=== PATIENT | male | born 1985 | race Two or more races ===

== ENCOUNTER 2021-12-20 08:55 | Inpatient (IN) | payer BC, MEDICAID ==
[2021-12-14 11:06] LABS: BASOPHILS % (AUTO) 0.8 % (0-1); EOSINOPHILS # (AUTO) 0.2 X10'3 (0-0.9); LYMPHOCYTES # (AUTO) 1.2 X10'3 (1.1-4.8); LYMPHOCYTES % (AUTO) 26.5 % (21-51); MEAN CORPUSCULAR HEMOGLOBIN 27.5 PG (27.0-31.0); MEAN CORPUSCULAR HGB CONC 33.6 g/dL (33.0-36.5); MEAN PLATELET VOLUME 9.7 FL (7.4-10.4); MONOCYTES # (AUTO) 0.4 X10'3 (0-0.9); MONOCYTES % (AUTO) 9.8 % (2-12); NEUTROPHILS # (AUTO) 2.6 X10'3 (1.8-7.7); NEUTROPHILS % (AUTO) 57.9 % (42-75); PRE OP HEMATOCRIT 42.7 % (42.0-52.0); PRE OP HEMOGLOBIN 14.4 g/dL (14.0-17.9); PRE OP PLATELET COUNT 159 X10'3 (140-440); RED BLOOD COUNT 5.21 X10'6 (4.70-6.10); RED CELL DISTRIBUTION WIDTH 14.8 % (11.5-14.5)
[2021-12-14 11:20] LABS: ALBUMIN 3.8 G/DL (3.4-5.0); ALBUMIN/GLOBULIN RATIO 0.9 (1.1-1.5); ALKALINE PHOSPHATASE 111 IU/L (46-116); BLOOD UREA NITROGEN 15 MG/DL (7-18); BUN/CREATININE RATIO 16.7 (5.4-32.0); CALCIUM 8.7 MG/DL (8.5-10.1); CHLORIDE 105 MMOL/L (99-107); PRE OP ALT 44 U/L (30-65); PRE OP ANION GAP 6 (8-16); PRE OP AST 25 U/L (10-37); PRE OP BILIRUB, TOTAL 0.3 MG/DL (0.0-1.0); PRE OP POTASSIUM 4.3 MMOL/L (3.4-5.1); PRE OP SODIUM 137 MMOL/L (135-145); TOTAL CARBON DIOXIDE 25.6 MMOL/L (24-32); eGFR > 90 ML/MIN
[2021-12-14 11:22] LABS: PRE OP GLUCOSE 288 MG/DL (70-104)
[2021-12-20] VITALS (16 sets, daily range): BP systolic 122–186; BP diastolic 75–95
[~2021-12-20] VITALS: Ht 167.6 cm; Wt 109.6 kg
[~2021-12-20 08:55] MED LIST: ENAL-79 PO; GLIP5TAB13 PO; MALTODEXTRIN/FRUCTOSE 0.68 KCAL/ML LIQUID 296ML BOTTLE PO ONE; METF-438 PO; SITA25TA3 PO; ceFOXitin 2GM-NS 100mL ADDvant 100 ML IV ONE; famotidine 20mg tablet PO ONE; heparin, porcine 5000 units/ml vial SQ ONE; metroNIDAZOLE-Flagyl 500mg/NS 100ML IVPB IV ONE; ringers solution, lacted 1,000 ML IV SCH
[2021-12-20] MEDS ORDERED: morphine 4 MG/ML inj SYRINge IV PRN (09:10)
[2021-12-20] MEDS ORDERED: proCHLORperazine 10 MG/2 ml inj IV PRN (09:10)
[2021-12-20] MEDS ORDERED: meperidine/PF 25mg/ml syringe IV PRN ×2 (09:10)
[2021-12-20] MEDS ORDERED: morphine 2 MG/ML inj. syringe IV PRN (09:10)
[2021-12-20] MEDS ORDERED: ondansetron/PF 4mg/2ml inj IV PRN ×2 (09:10→13:05)
[2021-12-20] MEDS ORDERED: ringers solution, lacted 1,000 ML IV SCH (09:10)
[2021-12-20] MEDS ORDERED: BUPIVAcaine/PF 2.5mg/ml (0.25%) 10ml vial ONE (09:59)
[2021-12-20] MEDS ORDERED: fentaNYL /PF 50mcg/ml 5ml ampule ONE (09:59)
[2021-12-20] MEDS ORDERED: midazolam 1 mg/ML 2ml injection ONE (09:59)
[2021-12-20] MEDS ORDERED: LIDOcaine 1% W/epiNEPHrine 1:100,000 20ml vial ONE (10:00)
[2021-12-20] MEDS ORDERED: propofol inj 20 ML IV ONE (10:00)
[2021-12-20] MEDS ORDERED: insulin regular, human 10 units/0.1 ml syringe IV ONE (10:00)
[2021-12-20] MEDS ORDERED: LIDOcaine 2% (20mg/ml) 5ml vial ONE (10:00)
[2021-12-20] MEDS ORDERED: rocuronium 10mg/ml inj IV ONE ×2 (10:01→10:51)
[2021-12-20] MEDS ORDERED: ondansetron/PF 4mg/2ml inj ONE (10:28)
[2021-12-20] MEDS ORDERED: acetaminophen 1,000mg/100ml IV 100 ML IV ONE (12:11)
--- NOTE | 2021-12-20 12:42 | NUR ---
Received from OR via HOSPITAL BED, accompanied by Anesthesiologist TRIP and report given by Anesthesiolgist. 20G LEFT HAND WITH LR AT 100ML/HR. DENIES PAIN. VSS. ORAL AIRWAY REMOVED BY 10L MASK.
[2021-12-20] MEDS: meperidine/PF 25mg/ml syringe IV PRN ×2 (12:56→16:31)
[2021-12-20] MEDS ORDERED: MESSAGE TO PHARMACY PO ONE (13:05)
[2021-12-20] MEDS ORDERED: dextrose 50%-water 50ml dispensing syringe IV PRN ×2 (13:05)
[2021-12-20] MEDS ORDERED: CADD PCA waste documentation MC PRN (13:05)
[2021-12-20] MEDS ORDERED: dextrose ORAL solution 15 GM/59 ML bottle PO PRN ×2 (13:05)
[2021-12-20] MEDS ORDERED: glucagon, human recombinant 1mg kit SUBCUT PRN (13:05)
[2021-12-20] MEDS ORDERED: naloxone 0.4 mg/ml inj IV PRN (13:05)
[2021-12-20] MEDS: HYDROcodone/acetaminophen 5mg/325mg tablet PO PRN (13:37)
[2021-12-20] MEDS: HYDROmorph./NS 0.2 mg/ml CADD 100 ML IV SCH ×5 (14:07→23:00)
--- NOTE | 2021-12-20 14:22 | NUR ---
REPORT GIVEN TO NURSE. PATIENT TAKEN TO ROOM 344A WITH ALL BELONGINGS. VSS. DILAUDID RATE ANALYST ATTACHED WITH LACTATED RINGERS. DENIES PAIN AND NAUSEA AT THIS TIME.
--- NOTE | 2021-12-20 14:48 | NUR ---
Received from OR via HOSPITAL BED, accompanied by Deonna DEL RIO and report given Deonna DEL RIO . 20G LEFT HAND . denies pain at this time.
--- NOTE | 2021-12-20 15:14 | NUR ---
Received admit to room 344B DX: reversal ileostomy , incision on R lower abdomen dressing intact, no drainning noted. IV line is on left hand peripheral. Patiend denied pain at this time.
--- NOTE | 2021-12-20 15:19 | NUR ---
nasal swab done sent to the lab
[2021-12-20] MEDS: potassium CL 20mEq in D5-1/2NS 1,000 ML IV SCH (16:31)
[2021-12-20] MEDS: metroNIDAZOLE-Flagyl 500mg/NS 100 ML IV SCH ×2 (17:46→23:10)
[2021-12-20] MEDS: ceFOXitin inj 1,000 MG in normal saline 100ml IV soln 100 ML IV SCH ×2 (17:46→23:10)
--- NOTE | 2021-12-20 18:10 | NUR ---
Patient in room [facility]A. I have received report from QUANG Cárdenas and had the opportunity to ask questions and assume patient care.
--- NOTE | 2021-12-20 18:39 | NUR ---
Problems reprioritized. Patient report given, questions answered & plan of care reviewed with Harley DEL RIO.
[2021-12-20] MEDS: docusate sod 100mg capsule PO SCH (19:27)
[2021-12-20] MEDS: heparin, porcine 5000 units/ml vial SQ SCH (19:29)
[2021-12-20] MEDS: insulin glargine (Lantus) pen - multi-dose SQ SCH (21:26)
[2021-12-21] MEDS: HYDROmorph./NS 0.2 mg/ml CADD 100 ML IV SCH ×12 (01:00→23:00)
[2021-12-21 04:00] VITALS: BP 125/80
[2021-12-21] MEDS: potassium CL 20mEq in D5-1/2NS 1,000 ML IV SCH ×2 (05:15→17:19)
[2021-12-21 05:59] LABS: BASOPHILS % (AUTO) 0.1 % (0-1); EOSINOPHILS % (AUTO) 0 % (0-6); HEMOGLOBIN 13.5 g/dl (14.0-17.9); LYMPHOCYTES % (AUTO) 11.1 % (21-51); MEAN CORPUSCULAR HEMOGLOBIN 27.7 PG (27.0-31.0); MEAN CORPUSCULAR HGB CONC 33.7 g/dL (33.0-36.5); MEAN CORPUSCULAR VOLUME 82.3 FL (78-98); MEAN PLATELET VOLUME 9.6 FL (7.4-10.4); MONOCYTES # (AUTO) 0.8 X10'3 (0-0.9); MONOCYTES % (AUTO) 9.1 % (2-12); NEUTROPHILS % (AUTO) 79.7 % (42-75); PLATELET COUNT 175 X10'3 (140-440); RED BLOOD COUNT 4.85 X10'6 (4.70-6.10); RED CELL DISTRIBUTION WIDTH 14.3 % (11.5-14.5); WHITE BLOOD COUNT 8.7 X10'3 (4.5-11.0)
--- NOTE | 2021-12-21 06:14 | NUR ---
Problems reprioritized. Patient report given, questions answered & plan of care reviewed with QUANG Nesbitt.
[2021-12-21 06:32] LABS: ALBUMIN 3.6 G/DL (3.4-5.0); ANION GAP 8 (8-16); BLOOD UREA NITROGEN 13 MG/DL (7-18); BUN/CREATININE RATIO 12.7 (5.4-32.0); CALCIUM 8.3 MG/DL (8.5-10.1); CHLORIDE 106 MMOL/L (99-107); CREATININE 1.02 MG/DL (0.60-1.10); GLUCOSE 246 MG/DL (70-104); POTASSIUM 4.6 MMOL/L (3.5-5.1); SODIUM 140 MMOL/L (135-145); eGFR 83 ML/MIN
--- NOTE | 2021-12-21 06:44 | NUR ---
Problems reprioritized. Patient report received, questions answered & plan of care reviewed with QUANG Cortes
[2021-12-21] MEDS: docusate sod 100mg capsule PO SCH ×2 (07:32→20:00)
[2021-12-21] MEDS: heparin, porcine 5000 units/ml vial SQ SCH ×2 (07:32→20:01)
[2021-12-21] MEDS: metroNIDAZOLE-Flagyl 500mg/NS 100 ML IV SCH ×2 (07:34→16:30)
[2021-12-21] MEDS ORDERED: famotidine 20mg tablet PO ONE (08:25)
--- NOTE | 2021-12-21 08:41 | NUR ---
Patient c/o acid reflux called placed to Dr Sellers order received for pepcid 20mg daily.
[2021-12-21] MEDS: insulin Lispro (HumaLOG) vial - multi-dose SQ SCH ×2 (09:09→19:41)
--- NOTE | 2021-12-21 11:43 | NUR ---
Patient has a few episode of vomiting DR Sellers notified, order received for Reglan IV Q8H noted in Mar.
[2021-12-21] MEDS: metoclopramide 5 mg/ml inj IV SCH ×2 (13:10→16:30)
[2021-12-21 13:31] VITALS: BP 139/78
--- NOTE | 2021-12-21 14:36 | NUR ---
Diabetes consult: Noted hx of T2DM in EMR, A1c 9.6. Written DM education in [place] w/ RD contact info placed in pt chart. Addendum: 12/21/21 at [address] Amended: Links added.
[2021-12-21 18:00] VITALS: BP 138/85
--- NOTE | 2021-12-21 18:11 | NUR ---
Patient in room [facility]. I have received report from QUANG Nesbitt and had the opportunity to ask questions and assume patient care.
--- NOTE | 2021-12-21 18:32 | NUR ---
Problems reprioritized. Patient report given, questions answered & plan of care reviewed with QUANG Ahumada.
[2021-12-21] MEDS: insulin glargine (Lantus) pen - multi-dose SQ SCH (22:04)
[2021-12-22] VITALS: BP 130/76
[2021-12-22] MEDS: metoclopramide 5 mg/ml inj IV SCH ×2 (00:11→07:19)
[2021-12-22] MEDS: HYDROmorph./NS 0.2 mg/ml CADD 100 ML IV SCH ×7 (01:00→13:00)
--- NOTE | 2021-12-22 03:53 | NUR ---
Pt had one recorded void since 1800. Pt was bladder scanned and had 142 ml in bladder.
[2021-12-22] MEDS: potassium CL 20mEq in D5-1/2NS 1,000 ML IV SCH (04:42)
--- NOTE | 2021-12-22 06:18 | NUR ---
Problems reprioritized. Patient report given, questions answered & plan of care reviewed with QUANG High.
--- NOTE | 2021-12-22 06:26 | NUR ---
Patient in room [facility]. I have received report from QUANG BROWN and had the opportunity to ask questions and assume patient care.
[2021-12-22 06:39] LABS: BASOPHILS % (AUTO) 0.6 % (0-1); EOSINOPHILS % (AUTO) 0.6 % (0-6); HEMATOCRIT 36.8 % (42.0-52.0); HEMOGLOBIN 12.6 g/dl (14.0-17.9); LYMPHOCYTES # (AUTO) 1.3 X10'3 (1.1-4.8); LYMPHOCYTES % (AUTO) 22.6 % (21-51); MEAN CORPUSCULAR HGB CONC 34.1 g/dL (33.0-36.5); MEAN PLATELET VOLUME 9.6 FL (7.4-10.4); MONOCYTES # (AUTO) 0.4 X10'3 (0-0.9); MONOCYTES % (AUTO) 7.3 % (2-12); NEUTROPHILS % (AUTO) 68.9 % (42-75); PLATELET COUNT 145 X10'3 (140-440); RED BLOOD COUNT 4.49 X10'6 (4.70-6.10); RED CELL DISTRIBUTION WIDTH 14.5 % (11.5-14.5); WHITE BLOOD COUNT 5.8 X10'3 (4.5-11.0)
[2021-12-22 07:06] LABS: ALBUMIN 3.5 G/DL (3.4-5.0); ANION GAP 8 (8-16); BLOOD UREA NITROGEN 11 MG/DL (7-18); BUN/CREATININE RATIO 12.1 (5.4-32.0); CHLORIDE 106 MMOL/L (99-107); CREATININE 0.91 MG/DL (0.60-1.10); GLUCOSE 162 MG/DL (70-104); SODIUM 142 MMOL/L (135-145); TOTAL CARBON DIOXIDE 28.5 MMOL/L (24-32); eGFR > 90 ML/MIN
[2021-12-22] MEDS: heparin, porcine 5000 units/ml vial SQ SCH (07:19)
[2021-12-22] MEDS: docusate sod 100mg capsule PO SCH (07:19)
[2021-12-22 08:11] VITALS: BP 142/85
[2021-12-22 13:01] VITALS: BP 157/99
[2021-12-22] MEDS: insulin Lispro (HumaLOG) vial - multi-dose SQ SCH (13:36)
[2021-12-22] MEDS ORDERED: HYDR-3964 PO (14:52)
[2021-12-22] MEDS ORDERED: DOCU100C40 PO (14:52)
[2021-12-22] MEDS: HYDROcodone/acetaminophen 5mg/325mg tablet PO PRN (15:05)
--- NOTE | 2021-12-22 16:31 | NUR ---
Patient alert and oriented with no s/s of apparent acute distress with spouse at bedside. Educated patient and spouse who translated for patient regarding discharge teaching. Both verbalized understanding of teaching and no questions.
--- NOTE | 2021-12-22 17:14 | NUR ---
patient dc'd with all personal belongings escorted in wheelchair accompanied by x1 staff and spouse.
== END 2021-12-22 17:05 | disposition home or self-care (01) | DRG 331 ==
LOC: UNDOADMIN 08:55 → PAS IN 08:55 → EDSTATUS 11:00 → PAS IN 13:14 → SUR 3N 14:20
PROVIDERS: ADMIT Colon & Rectal Surgery; ATTEND Colon & Rectal Surgery
PROC: 0DB80ZZ Excision of Small Intestine, Open Approach (ICD-10-PCS; 2021-12-20)
PROC: 0WQF0ZZ Repair Abdominal Wall, Open Approach (ICD-10-PCS; 2021-12-20)
PROC: 0DBB0ZZ Excision of Ileum, Open Approach (ICD-10-PCS; principal; 2021-12-20 10:03)
DX: Z43.2 Encounter for attention to ileostomy (principal); E11.9 Type 2 diabetes mellitus without complications; K43.2 Incisional hernia without obstruction or gangrene; I10 Essential (primary) hypertension; Z20.822 Contact with and (suspected) exposure to COVID-19; K43.5 Parastomal hernia without obstruction or gangrene; E66.01 Morbid (severe) obesity due to excess calories; Z92.21 Personal history of antineoplastic chemotherapy; Z92.3 Personal history of irradiation; Z85.048 Personal history of other malignant neoplasm of rectum, rectosigmoid junction, and anus; Z68.39 Body mass index [BMI] 39.0-39.9, adult
CPT/HCPCS: Z7506; Z7508; 36415; 80048; 80053; 82948; 83036; 85025; 86885; 86900; 86901; 87081; 93005; A4618; A7000; G0378; J0131; J0694; J1170; J1644; J1815; J2175; J2250; J2270; J2405; J2704; J2765; J3010; J3480; J3490; J7120; U0003; U0005